=== PATIENT | male | born 1975 | race African-American/Black ===

== ENCOUNTER 2018-06-11 19:29 | Emergency (ER) | payer OTHER ==
[~2018-06-11] VITALS: Ht 177.8 cm; Wt 97.5 kg
[~2018-06-11 19:29] MED LIST: FLOMAX0.4 MG PO; MORPHINE SULFAT15 M3 PO; ONDANSETRON HCL4 M2 PO; ZANTAC 150MG T150 MG PO
[2018-06-11 19:53] LABS: URINE BILIRUBIN NEGATIVE (Negative); URINE BLOOD TRACE (Negative); URINE CLARITY CLEAR; URINE COLOR YELLOW; URINE GLUCOSE-RANDOM* NEGATIVE (Negative); URINE KETONES NEGATIVE (Negative); URINE LEUKOCYTES-REFLEX NEGATIVE (Negative); URINE NITRITE-REFLEX NEGATIVE (Negative); URINE PROTEIN (DIPSTICK) 1+ (Negative); URINE UROBILINOGEN 0.2 E.U./dl (0.2-1.0)
[2018-06-11 20:06] LABS: CASTS None Seen /LPF (None Seen); SQUAMOUS None Seen /LPF (0-3)
[2018-06-11 20:07] LABS: BACTERIA-REFLEX 1-9 Few /HPF (None Seen); CRYSTALS None Seen /LPF (None Seen); URINE WBC-REFLEX None Seen /HPF (0-5)
[2018-06-11 20:08] LABS: URINE RBC 0-2 Rare /HPF (0-2)
[2018-06-11 20:16] LABS: ABSOLUTE NEUTROPHILS 6.5 thou/uL (1.4-8.2); BASOPHILS 0.6 % (0.0-2.0); EOSINOPHILS 0.1 % (0.0-3.0); HEMATOCRIT 41.6 % (42.0-52.0); HEMOGLOBIN 13.8 gm/dL (14.0-18.0); LYMPHOCYTES 14.8 % (24.0-44.0); MCH 27.2 pg (26.0-34.0); MCHC 33.2 g/dL (28.0-37.0); MCV 81.7 fL (80.0-100.0); MONOCYTES 7.5 % (1.0-8.0); PLATELET COUNT 180 thou/uL (150-400); RBC 5.09 mil/uL (4.50-6.00); RDW 15.7 % (10.5-14.5); WBC 8.4 thou/uL (4.0-11.0)
[2018-06-11 20:23] LABS: CALCIUM 9.3 mg/dL (8.5-10.1); CREATININE 1.8 mg/dL (0.7-1.3); POTASSIUM 4.4 mmol/L (3.5-5.1)
[2018-06-11] MEDS ORDERED: FLOMAX0.4 MG PO (22:08)
[2018-06-11] MEDS ORDERED: HYDROCODONE-AP1 EAC6 PO (22:08)
[2018-06-11] MEDS ORDERED: PHENERGAN 25 MG25 M1 PO (22:08)
[2018-06-11 22:24] VITALS: BP 114/59
== END 2018-06-11 22:25 | disposition home or self-care (01) ==
LOC: ER 19:29
PROVIDERS: Emergency Medicine
DX: N20.1 Calculus of ureter (principal); F17.210 Nicotine dependence, cigarettes, uncomplicated

== ENCOUNTER 2018-08-23 21:02 | Emergency (ER) | payer OTHER ==
[~2018-08-23] VITALS: Ht 177.8 cm; Wt 97.5 kg
[~2018-08-23 21:02] MED LIST changes: +HYDROCODONE-AP1 EAC6 PO; +PHENERGAN 25 MG25 M1 PO
[2018-08-23] MEDS ORDERED: FLEXERIL PO (21:56)
[2018-08-23] MEDS ORDERED: MOBIC15 MG PO (21:56)
[2018-08-23 22:00] VITALS: BP 121/77
== END 2018-08-23 22:10 | disposition home or self-care (01) ==
LOC: ER 21:02
DX: M54.5 Low back pain (principal); M54.2 Cervicalgia; V89.2XXA Person injured in unspecified motor-vehicle accident, traffic, initial encounter; Y93.89 Activity, other specified; Y92.89 Other specified places as the place of occurrence of the external cause; Y99.8 Other external cause status; F17.210 Nicotine dependence, cigarettes, uncomplicated